=== PATIENT | female | born 1950 | race Caucasian/White ===

== ENCOUNTER 2019-04-25 18:01 | Inpatient (IN) ==
[2019-04-25] MEDS ORDERED: ONDANSETRON 4 MG/2 ML VIAL IV PRN (21:00)
[2019-04-25] MEDS ORDERED: diphenhydrAMINE CAP 25 MG CAPSULE PO PRN (21:00)
[2019-04-25] MEDS ORDERED: MORPHINE 4 MG/1 ML VIAL IV PRN (21:00)
[2019-04-25] MEDS ORDERED: NICOTINE 21 MG/24 HR PATCH TRANSDERM PRN (21:00)
[2019-04-25] MEDS ORDERED: GLUCAGON 1 MG VIAL IM PRN (21:00)
[2019-04-25] MEDS ORDERED: DEXTROSE 50% 25 GM/50 ML VIAL IV PRN (21:00)
[2019-04-25 22:18] LABS: Basophils % 0.4 % (0.0-0.8); Eosinophils % 0.1 % (0.00-10.9); Hematocrit 39.8 VOL% (35.7-47.0); Hemoglobin 12.8 GM/DL (12.0-16.0); Immature Granulocytes % 0.4 %; Immature Granulocytes Absolute 0.03 #; Lymphocytes # 1.2 10*3/uL (1.4-4.0); Lymphocytes % 15.2 % (21.3-54.2); Mean Corpuscular HGB Conc 32.2 GM/DL (32-36); Mean Corpuscular Volume 86.7 FL (87-102); Mean Platelet Volume 11.1 FL (9.6-12.0); Neutrophils % 71.9 % (38.7-73.9); Platelet Count 129 T/CUMM (130-400); Red Blood Count 4.59 MC/CUMM (3.8-5.5); Red Cell Distribution Width 14.8 % (9.3-17.3); White Blood Count 7.8 T/CUMM (4-12)
[2019-04-25 22:36] LABS: Albumin 3.4 G/DL (3.4-5.0); Bilirubin,Total 0.8 MG/DL (0.2-1.0); Total Protein 7.4 G/DL (6.4-8.3)
[2019-04-25 22:44] LABS: Risk Ratio 3.96; Thyroid Stimulating Hormone 1.71 uIU/ml (0.358-3.74); VLDL CHOLESTEROL 25.8 MG/DL
[2019-04-25] MEDS: INSULIN REGULAR 100 UNIT/ML SUBCUT SCH (22:57)
[2019-04-25] MEDS: SODIUM CHLORIDE 0.9% 1,000 ML IV SCH (23:03)
[2019-04-25] MEDS: cefTRIAXone 1,000 MG in SYRINGE 1 EACH IV SCH (23:03)
[2019-04-25] MEDS: ACYCLOVIR 800 MG TABLET PO SCH (23:03)
[2019-04-26] MEDS: ACETAMINOPHEN 325 MG TABLET PO PRN ×3 (04:22→22:24)
[2019-04-26 07:04] LABS: Apearance,Urine CLEAR (Clear); Bilirubin,Urine Negative (Negative); Blood, Urine Negative (Negative); Glucose,Urine (UA) 50 mg/dL (Negative); Ketones,Urine 80 mg/dL (Negative); Nitrite,Urine Negative (Negative); Protein,Urine 30 MG/DL; RBC,Urine 9 /HPF (0-4); Squamous Epithelial Cell,Urine Occasional /HPF (0-10); Urine Color Yellow (Yellow); Urine Specific Gravity 1.055 (1.001-1.035); WBC,Urine 39 /HPF (0-6)
[2019-04-26] MEDS: SODIUM CHLORIDE 0.9% 1,000 ML IV SCH (09:32)
[2019-04-26] MEDS: ACYCLOVIR 800 MG TABLET PO SCH ×2 (09:33→22:24)
[2019-04-26] MEDS: INSULIN REGULAR 100 UNIT/ML SUBCUT SCH ×4 (09:33→22:27)
[2019-04-26] MEDS: BUDESONIDE 3 MG CAPSULE PO SCH ×2 (09:33→09:35)
[2019-04-26 12:37] LABS: INR 1.1; PT Patient Result 12.2 SECS; Partial Thromboplastin Time 27.2 SECS (0-40)
[2019-04-26] MEDS: cefTRIAXone 1,000 MG in SYRINGE 1 EACH IV SCH ×2 (14:48→22:24)
[2019-04-26 17:39] LABS: Lymphocytes,CSF 94 %; Monocytes,CSF 5 %; Neutrophils,CSF 1 %
[2019-04-26 17:40] LABS: Appearance,CSF Clear; Red Blood Cell,CSF < 1 C/CUMM; White Blood Cell,CSF 111 C/CUMM
[2019-04-27] MEDS: SODIUM CHLORIDE 0.9% 1,000 ML IV SCH ×3 (05:15→18:15)
[2019-04-27] MEDS: INSULIN REGULAR 100 UNIT/ML SUBCUT SCH ×4 (08:47→20:46)
[2019-04-27] MEDS: cefTRIAXone 1,000 MG in SYRINGE 1 EACH IV SCH ×2 (08:49→20:44)
[2019-04-27] MEDS: BUDESONIDE 3 MG CAPSULE PO SCH ×3 (08:49→08:52)
[2019-04-27] MEDS: ACYCLOVIR 800 MG TABLET PO SCH ×2 (08:49→20:44)
[2019-04-27] MEDS: ACETAMINOPHEN 325 MG TABLET PO PRN ×2 (11:50→22:25)
[2019-04-28] MEDS: SODIUM CHLORIDE 0.9% 1,000 ML IV SCH ×2 (01:45→13:24)
[2019-04-28] MEDS: INSULIN REGULAR 100 UNIT/ML SUBCUT SCH ×2 (08:33→11:46)
[2019-04-28 08:46] LABS: Basophils % 0.7 % (0.0-0.8); Eosinophils # 0.1 10*3/uL (0.0-0.87); Eosinophils % 1.1 % (0.00-10.9); Hematocrit 34.8 VOL% (35.7-47.0); Immature Granulocytes % 0.6 %; Immature Granulocytes Absolute 0.03 #; Mean Corpuscular HGB Conc 31.6 GM/DL (32-36); Mean Platelet Volume 10.1 FL (9.6-12.0); Monocytes % 14.5 % (1.7-12.7); Neutrophils % 64.1 % (38.7-73.9); Platelet Count 131 T/CUMM (130-400); Red Cell Distribution Width 14.9 % (9.3-17.3); White Blood Count 5.4 T/CUMM (4-12)
[2019-04-28 09:07] LABS: Anisocytosis Slight; Band Neutrophils 11 % (0-10); Eosinophils 1 % (0-10); Lymphocytes 11 % (20-55); Platelet Estimate Adequate; Segmented Neutrophils 67 % (50-85); Total Cells Counted 100
[2019-04-28] MEDS: BUDESONIDE 3 MG CAPSULE PO SCH (09:08)
[2019-04-28] MEDS: ACYCLOVIR 800 MG TABLET PO SCH (09:09)
[2019-04-28] MEDS: cefTRIAXone 1,000 MG in SYRINGE 1 EACH IV SCH (09:09)
[2019-04-28 09:11] LABS: Calcium 8.1 MG/DL (8.5-10.1); Osmolality,Calculated 279.5 MOS/KG (273-304)
[2019-04-28] MEDS: ACETAMINOPHEN 325 MG TABLET PO PRN (09:16)
[2019-04-28 09:17] LABS: Troponin I < 0.015 NG/ML (0.00-0.045)
[2019-04-28 11:32] VITALS: BP 105/58
[2019-04-28 12:05] LABS: Troponin I < 0.015 NG/ML (0.00-0.045)
[2019-05-02 12:16] LABS: West Nile Virus Ab, IgG, CSF Negative (Negative); West Nile Virus Ab, IgM, CSF Negative (Negative)
== END 2019-04-28 16:06 | disposition home health service (06) | DRG 71 ==
LOC: N.4E → SUATTDRO 21:05 → SUPCPDRO 21:05
PROVIDERS: ADMIT Internal Medicine; ATTEND Internal Medicine